=== PATIENT | female | born 1985 | race African-American/Black ===

== ENCOUNTER 2021-03-28 15:15 | Emergency (ER) | payer OTHER ==
[2021-03-28 15:25] VITALS: BP 134/71; PULSE 95; TEMP 99.3; BMI 35.9
[2021-03-28] MEDS ORDERED: predniSONE 20 MG TABLET (UD) ONE (15:50)
[2021-03-28] MEDS ORDERED: diphenhydrAMINE HCL 25 MG CAPSULE (FP) PO ONE (15:50)
[2021-03-28] MEDS ORDERED: FAMOTIDINE 20 MG TABLET PO ONE (15:53)
[2021-03-28] MEDS ORDERED: diphenhydrAMINE HCL 50 MG CAPSULE PO ONE (15:53)
[2021-03-28] MEDS ORDERED: predniSONE 20 MG TABLET (UD) PO ONE (15:53)
[2021-03-28] MEDS ORDERED: FAMOTIDINE 20 MG TABLET ONE (15:57)
[2021-03-28] MEDS ORDERED: diphenhydrAMINE HCL 50 MG CAPSULE ONE (15:57)
== END 2021-03-28 16:15 | disposition home or self-care (01) ==
LOC: FER 15:15
DX: T78.40XA Allergy, unspecified, initial encounter (principal)
CPT/HCPCS: 36415; 86780; 99283-25